=== PATIENT | female | born 1990 | race Two or more races ===

== ENCOUNTER → 2024-11-10 | Outpatient (CLI) | payer OTHER, SELFPAY ==
[2024-11-10 18:10] LABS: Basophils % (Auto) 0 % (0-2.5); Eosinophils # (Auto) 0.2 Thou/mm3 (0.0-0.5); Eosinophils % (Auto) 3 % (0-10); Hematocrit 39.6 % (36.0-46.0); Hemoglobin 13.3 g/dL (12.0-16.0); Immature Granulocytes % (Auto) 0 % (0-0); Immature Granulocytes Auto 0.02 Thou/mm3 (0.00-0.00); Lymphocytes # (Auto) 2.3 Thou/mm3 (1.0-4.8); Lymphocytes % (Auto) 29 % (10-50); Mean Corpuscular HGB Conc 33.6 g/dl (31.0-37.0); Mean Corpuscular Hemoglobin 28.9 pg (25.0-35.0); Mean Corpuscular Volume 86 fL (80-100); Monocytes # (Auto) 0.5 Thou/mm3 (0.0-0.8); Monocytes % (Auto) 6 % (0-12); Neutrophils # (Auto) 4.9 Thou/mm3 (1.8-7.7); Neutrophils % (Auto) 62 % (37-80); Nucleated Red Blood Cell % 0 /100 WBC (0); Platelet Count 346 Thou/mm3 (140-440); RDW Standard Deviation 39.5 fL (36.4-46.3); Red Blood Count 4.61 Miln/mm3 (4.00-5.20); White Blood Count 7.9 Thou/mm3 (3.6-11.0)
[2024-11-10 18:18] LABS: Glucose Estimated Average 105 mg/dL (80-131); Hemoglobin A1C 5.3 % Hgb (4.8-6.0)
[2024-11-10 18:25] LABS: Folate 13.51 ng/mL (>5.38); Vitamin B12 383 pg/mL (211-911); Vitamin D 25 Hydroxy Total 28.6 ng/mL (7.3-40.2)
[2024-11-10 18:27] LABS: Alanine Aminotransferase 36 U/L (10-49); Albumin, Serum 4.3 gm/dL (3.5-5.0); Albumin/Globulin Ratio 1.6 (1.2-2.2); Alkaline Phosphatase 81 U/L (46-116); Anion Gap 10 (7-16); Aspartate Amino Transferase 21 U/L (0-34); BUN/Creatinine Ratio 14 Ratio (12-20); Bilirubin,Total 0.3 mg/dL (0.3-1.2); Blood Urea Nitrogen 10 mg/dL (9-23); Calcium 9.5 mg/dL (8.3-10.6); Calcium (Corrected) 9.5 mg/dL (8.5-10.1); Carbon Dioxide 24.9 mMol/L (20.0-31.0); Cardiac Risk Estimate 5.7 RATIO (3.7-5.6); Chloride 102 mMol/L (98-107); Cholesterol 258 mg/dL (132-200); Creatinine (Component) 0.7 mg/dL (0.6-1.3); Free T4 (Free Thyroxine) 1.25 ng/dL (0.89-1.76); Globulin 2.7 gm/dL (2.3-3.5); Glucose 87 mg/dL (74-106); HDL Cholesterol 45 mg/dL (40-60); LDL Cholesterol,Calculated 184 mg/dL (0-130); Osmolality,Calculated 271 (275-295); Potassium 3.9 mMol/L (3.4-5.1); Sodium 137 mMol/L (136-145); Thyroid Stimulating Hormone 3.06 uIU/mL (0.55-4.78); Triglycerides 143 mg/dL (30-150); eGFR > 60 See Note
[2024-11-10 19:40] LABS: Ferritin 30 ng/mL (7.3-270.7); Iron 47 mcg/dL (50-170); Percent Iron Saturation 14 % (20-55); Total Iron Binding Capacity 320 mcg/dL (250-425); Unsaturated Iron Binding 273 (225-295)
[2024-11-17 06:54] LABS: Insulin* 24.9 uIU/mL (< OR = 18.4)
== END | disposition home or self-care (01) ==
LOC: CDIM 16:36 → COPL 16:42
PROVIDERS: PCP Nurse Practitioner; Referring Provider Nurse Practitioner; Visit Provider Nurse Practitioner
DX: R53.83 Other fatigue (principal); E78.5 Hyperlipidemia, unspecified; R73.09 Other abnormal glucose; E66.813 Obesity, class 3
CPT/HCPCS: 36415; 80053; 80061; 82306; 82607; 82728; 82746; 83036; 83525; 83540; 83550; 84439; 84443; 85025

== ENCOUNTER → 2025-02-07 | Outpatient (CLI) | payer OTHER, SELFPAY ==
--- NOTE | 2025-02-07 08:30 | XR_ITS ---
Examination: Abdomen sonogram, complete Date and time of exam: February 07, 2025 0832 hours INDICATIONS: Diagnosis of morbid obesity. Technique: Multiple real-time grayscale transabdominal sonographic images of the abdomen have been obtained. Findings: Normal gallbladder Normal common bile duct 0.5 cm Pancreatic head 3.0 cm Aorta not enlarged. Liver 14.4 cm fatty liver Normal hepatopedal portal venous flow Patent IVC Right kidney 11.2 cm cortex 2.3 cm Left kidney 10.7 cm cortex 1.8 cm Spleen 9.7 cm IMPRESSION: Normal gallbladder Fatty liver
== END | disposition home or self-care (01) ==
LOC: CDIM 08:10
PROVIDERS: Referring Provider Surgery; Visit Provider Surgery
DX: K76.0 Fatty (change of) liver, not elsewhere classified (principal)
CPT/HCPCS: 76700

== ENCOUNTER 2025-03-04 07:15 | Day surgery (SDC) | payer OTHER, SELFPAY ==
--- NOTE | 2025-03-03 12:37 | EKG_ITS ---
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
[2025-03-03 14:04] LABS: Basophils % (Auto) 0 % (0-2.5); Eosinophils # (Auto) 0.1 Thou/mm3 (0.0-0.5); Eosinophils % (Auto) 1 % (0-10); Hematocrit 41.2 % (36.0-46.0); Hemoglobin 13.7 g/dL (12.0-16.0); Immature Granulocytes % (Auto) 0 % (0-0); Immature Granulocytes Auto 0.01 Thou/mm3 (0.00-0.00); Lymphocytes # (Auto) 1.6 Thou/mm3 (1.0-4.8); Lymphocytes % (Auto) 26 % (10-50); Mean Corpuscular HGB Conc 33.3 g/dl (31.0-37.0); Mean Corpuscular Hemoglobin 29.1 pg (25.0-35.0); Mean Corpuscular Volume 88 fL (80-100); Monocytes # (Auto) 0.5 Thou/mm3 (0.0-0.8); Monocytes % (Auto) 8 % (0-12); Neutrophils # (Auto) 4.2 Thou/mm3 (1.8-7.7); Neutrophils % (Auto) 65 % (37-80); Nucleated Red Blood Cell % 0 /100 WBC (0); Platelet Count 339 Thou/mm3 (140-440); RDW Standard Deviation 41.2 fL (36.4-46.3); White Blood Count 6.4 Thou/mm3 (3.6-11.0)
[2025-03-03 14:17] LABS: Partial Thromboplastin Time 28.2 Seconds (22.0-36.0); Prothrombin Time 10.6 Seconds (9.0-12.2)
[2025-03-03 14:27] LABS: Alanine Aminotransferase 25 U/L (10-49); Albumin, Serum 4.5 gm/dL (3.5-5.0); Albumin/Globulin Ratio 1.7 (1.2-2.2); Alkaline Phosphatase 71 U/L (46-116); Anion Gap 12 (7-16); BUN/Creatinine Ratio 15 Ratio (12-20); Bilirubin,Total 0.3 mg/dL (0.3-1.2); Blood Urea Nitrogen 12 mg/dL (9-23); Calcium 9.4 mg/dL (8.3-10.6); Calcium (Corrected) 9.4 mg/dL (8.5-10.1); Carbon Dioxide 25.3 mMol/L (20.0-31.0); Chloride 106 mMol/L (98-107); Creatinine (Component) 0.8 mg/dL (0.6-1.3); Globulin 2.7 gm/dL (2.3-3.5); Glucose 98 mg/dL (74-106); Osmolality,Calculated 284 (275-295); Potassium 4.1 mMol/L (3.4-5.1); Sodium 143 mMol/L (136-145); Total Protein 7.2 gm/dL (5.7-8.2); eGFR > 60 See Note
[2025-03-04] MEDS: RINGERS LACTATED 1000 ML 1,000 ML 20 ML IV (08:20)
[2025-03-04 08:21] VITALS: BP 140/92; PULSE 65; RESP 15; TEMP 36.2; O2SAT 96
[2025-03-04 08:22] VITALS: BMI 43.1
[2025-03-04 09:09] VITALS: BP 122/86; PULSE 79; RESP 20; TEMP 36.7; O2SAT 96
[2025-03-04 09:19] VITALS: BP 124/73; PULSE 74; RESP 17; O2SAT 97
[2025-03-04 09:29] VITALS: BP 141/101; PULSE 70; RESP 15; O2SAT 99
[2025-03-04 09:55] VITALS: BP 156/98; PULSE 63; RESP 18; O2SAT 99
== END 2025-03-04 09:55 | disposition home or self-care (01) ==
PROVIDERS: PCP Nurse Practitioner; Referring Provider Specialist; Visit Provider Specialist
PROC: (CPT 43239; principal; 2025-03-04 08:30)
DX: Z01.818 Encounter for other preprocedural examination (principal); Z01.810 Encounter for preprocedural cardiovascular examination; K20.90 Esophagitis, unspecified without bleeding; K29.70 Gastritis, unspecified, without bleeding; K29.50 Unspecified chronic gastritis without bleeding; K63.89 Other specified diseases of intestine
CPT/HCPCS: 43239; 36415; 80053; 85025; 85610; 85730; 93005; J7120

== ENCOUNTER 2025-03-05 07:27 | Emergency (ER) | payer OTHER, SELFPAY ==
--- NOTE | 2025-03-05 07:34 | EKG_ITS ---
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
[2025-03-05 08:01] VITALS: BP 135/91; PULSE 74; RESP 18; TEMP 36.7; O2SAT 96
--- NOTE | 2025-03-05 08:09 | XR_ITS ---
Examination: PA lateral chest 2 views Technique: Upright PA lateral chest 2 views Date and time: March 05, 2025 0838 hrs. Indications: Chest pain today. Findings: No significant cardiac enlargement. Lungs are clear. Osseous structures are intact Impression: No active disease.
--- NOTE | 2025-03-05 08:10 | PD.EDCHEST ---
ED Chest Pain RME/HPI General Chief Complaint: Chest Pain Stated Complaint: Chest pressure since 614, endoscopy yesterday Time Seen by Provider: 03/05/25 07:54 Arrival date/time: 03/05/25 07:27 Limitations: no limitations RME / HPI RME / HPI narrative: 34-year-old female presents for evaluation of chest wall pain x 1 day. Patient had upper endoscopy (pre-op for bariatric surgery) performed yesterday with no reported complications following procedure. Patient reports that when she woke up this morning she felt a dull ache in her anterior chest. Denies shortness of breath, cough, palpitations, arm pain, jaw pain. Denies known family history of sudden cardiac . Denies recent travel and antibiotic use. Denies history of prior similar symptoms. Related Data Home Medications ?Medication ?Instructions ?Recorded ?Confirmed No Known Home Medications 03/04/25 03/04/25 Allergies Allergy/AdvReac Type Severity Reaction Status Date / Time No Known Allergies Allergy Verified 03/05/25 07:32 Review of Systems Constitutional Constitutional: Denies body ache(s), Denies chills, Denies excessive sweating, Denies fever(s), Denies headache(s) and Denies lethargy Eyes Eyes: Denies blind spots and Denies blurry vision ENT Ears, Nose, Mouth, and Throat: Denies dysphagia, Denies headache(s), Denies lip swelling, Denies neck pain and Denies odynophagia Cardiovascular Cardiovascular: Denies chest pain, Denies diaphoresis, Denies dyspnea and Denies palpitations Respiratory Respiratory: Denies cough, Denies dyspnea, Denies hemoptysis and Denies wheezing Gastrointestinal Gastrointestinal: Denies abdominal pain, Denies dysphagia, Denies nausea, Denies odynophagia and Denies vomiting Musculoskeletal Musculoskeletal: Denies back pain and Denies neck pain Integumentary/Breasts Skin/Breast: Denies lesions and Denies rash Neurologic Neurologic: Denies abnormal movements and Denies headache(s) Endocrine Endocrine: Denies excessive sweating and Denies palpitations Allergic/Immunologic Allergic/Immunologic: Denies lip swelling and Denies wheezing Past Medical History Past Medical History NEUROLOGIC: Negative Neurological Disorders or Seizures CARDIAC: Positive Cardiac Disorders and Hypercholesterolemia (diet controlled); Negative Congestive Heart Failure RESPIRATORY: Negative Chronic Obstructive Pulmonary Disease (COPD) GASTROINTESTINAL: Negative Gastrointestinal Disorders GENITOURINARY: Negative Genitourinary Disorders or Renal Disease MUSCULOSKELETAL: Negative Musculoskeletal Disorders ENDOCRINE: Negative Diabetes Mellitus Type 1 or Diabetes Mellitus Type 2 HEMATOLOGIC: Negative Blood Disorders PSYCHO/SOCIAL: Positive Anxiety OTHER HISTORY: Negative Blood Transfusions or Anesthesia Reactions Social History SMOKING STATUS: Never smoker ED Exam General Limitations: Present no limitations General appearance: Present alert and in no apparent distress Head Head exam: Present atraumatic and normocephalic Eye Eye exam: Present normal appearance and EOMI ENT ENT exam: Present normal oropharynx and mucous membranes moist Neck Neck exam: Present normal inspection and full ROM; Absent tenderness Chest Chest inspection: Present normal inspection and symmetric chest wall rise; Absent tenderness Respiratory Respiratory exam: Present normal lung sounds bilaterally; Absent respiratory distress or wheezes Cardiovascular Cardiovascular exam: Present regular rate and +S1 Abdominal Exam Abdominal exam: Present soft; Absent distention or tenderness Extremities Exam Extremities exam: Present normal inspection and full ROM Back Exam Back exam: Present normal inspection and full ROM Neurological Exam Neurological exam: Present alert and normal gait Psychiatric Psychiatric exam: Present normal affect Skin Skin exam: Present warm and dry Course Quality Measures none Orders Category Date Time Status EKG (ED ONLY) *Do not use* NOW Care 03/05/25 07:34 Completed EKG (ED Only) Stat Exams 03/05/25 07:34 Draft XR chest 2V Stat Exams 03/05/25 08:09 Taken B-Type Natriuretic Peptide Stat Lab 03/05/25 09:26 Completed CBC Stat Lab 03/05/25 09:26 Completed Comprehensive Metabolic Panel Stat Lab 03/05/25 09:26 Completed Drug Screen,Urine Stat Lab 03/05/25 08:31 Completed HCG Qualitative,Urine Stat Lab 03/05/25 08:31 Completed LDH (Lactate Dehydrogenase) Stat Lab 03/05/25 09:26 Completed Magnesium Stat Lab 03/05/25 09:26 Completed Partial Thromboplastin Time Stat Lab 03/05/25 09:26 Completed Prothrombin Time with INR Stat Lab 03/05/25 09:26 Completed Troponin I Stat Lab 03/05/25 09:26 Completed Urinalysis Stat Lab 03/05/25 08:31 Completed Vital Signs Vital signs: Vital Signs Temperature 98.1 F 03/05/25 08:01 Pulse Rate 74 03/05/25 08:01 Respiratory Rate 18 03/05/25 08:01 Blood Pressure 135/91 H 03/05/25 08:01 Pulse Oximetry (%) 96 03/05/25 08:01 Oxygen Delivery Method Room Air 03/05/25 08:01 Pulse ox 96% on room air, within normal limits. Chest Pain MDM Narrative MDM Narrative:: 34-year-old female presents for evaluation of chest pressure following upper endoscopy yesterday. No reported complications. Vital signs reassuring. Cardiac workup today reassuring giving negative troponin and chest x-ray without gross abnormalities. Patient reports that her symptoms did not recur while in the department. Ultimately she was discharged home with plan to follow-up with primary care within the week and continue to follow with outpatient gastroenterology for follow-up after endoscopy. Return precautions were provided. Patient stable at time of discharge. Patient data External records reviewed:: [facility] previous records Clinical information provided by:: patient Social determinants that could affect healthcare access:: none Patient has the following chronic illnesses:: None reported. How is presenting disease/condition affected by chronic disease/condition?: no chronic disease Evaluation data The following diagnostics were reviewed and interpreted by me:: lab results, radiology exam(s) and EKG tracing(s) Lab and/or radiology exams considered but not ordered:: Chest x-ray without mediastinal widening, no consolidations, no pneumothorax. Troponin within normal limits. No leukocytosis. No gross electrolyte abnormalities or evidence of endorgan damage. No anemia. Negative hCG. UA without signs of infection. Interpretation Summary: See above. Medications / Prescriptions Medications or Prescriptions considered but not ordered:: Considered not ordered. Medication administrations:: Considered not ordered. Consultations Consultation(s) initiated? (list below): No Diagnosis Chest Pain Differential Diagnosis: pneumothorax, stable angina, atypical chest pain, st elevation myocardial infarction, costochondritis, chest pain and biliary colic Most likely diagnosis given after review of the tests above:: Atypical chest pain. Admission Indicated Admission indicated?: not indicated Admission Request Was there a request for admission?: No Disposition Plan Disposition Plan: Discharge Discharge Attestation Discharge Attestation: The patient and all family members were given an opportunity to ask questions and understood the discharge instructions. Discharge instructions specifically effects, indications for sooner follow up or return to the emergency department, and the expected course of current diagnosis. Patient condition: Stable Discharge Plan Plan Patient Disposition: HOME (Self Care) Discharge Disposition comment: stable Prescriptions/Referrals Prescriptions/Med Rec: No Action No Known Home Medications Referrals: Deonna Rosales FNP [Primary Care Provider] - In 1 week Problem List Clinical Impression: Atypical chest pain Patient/Caregiver Discharge Instructions Education Materials: Managing Post-Op Pain at Home, ED Chest Pain, Uncertain Cause Additional Instructions: Follow-up with primary care within the next week for reevaluation. Continue to follow-up with GI as planned. Take ibuprofen as needed every 6 hours for pain. Eat soft foods over the next several days. Return to the ED if your symptoms worsen or change. Print Language: Malawian Stand Alone Forms: Saritha Award Info., Patient Portal Info Letter RENNY/LEÓN Supervising Physician RENNY/LEÓN Supervising Physician: Dr. Polk
[2025-03-05 08:53] LABS: Collection Type, Urine Clean Catch
[2025-03-05 09:00] LABS: Bacteria,Urine 1+; Bilirubin,Urine Negative (Negative); Blood,Urine Negative (Negative); Clarity,Urine Clear (Clear/Hazy); Color,Urine Colorless (Lt Yel-Yel); Glucose, Urine Negative (Negative); HCG Qualitative,Urine Negative; Ketones,Urine Negative (Negative); Leukocyte Esterase,Urine Negative (Negative); Nitrite,Urine Negative (Negative); PH,Urine 6.5 (5.0-7.0); Protein,Urine Negative (Neg - Trace); RBC,Urine 1 /hpf (0-3); Specific Gravity,Urine 1.007 (1.001-1.035); Squamous Epithelial Cell,Urine 1 /hpf (0-5); Urobilinogen,Urine Negative mg/dL (0.0-1.0); WBC,Urine 1 /hpf (0-5)
[2025-03-05 09:08] LABS: Amphetamine/Methamp Scrn,U Negative (Negative); Barbiturate Screen,Urine Negative (Negative); Benzodiazepines Screen,Urine Negative (Negative); Benzoylecgonine Screen, Ur Negative (Negative); Fentanyl Screen,Urine Negative (Negative); Opiate Screen,Urine Negative (Negative); THC Screen,Urine Negative (Negative)
[2025-03-05 09:50] LABS: Basophils % (Auto) 0 % (0-2.5); Eosinophils # (Auto) 0.1 Thou/mm3 (0.0-0.5); Eosinophils % (Auto) 1 % (0-10); Hematocrit 39.9 % (36.0-46.0); Hemoglobin 13.8 g/dL (12.0-16.0); Immature Granulocytes % (Auto) 0 % (0-0); Immature Granulocytes Auto 0.01 Thou/mm3 (0.00-0.00); Lymphocytes # (Auto) 1.5 Thou/mm3 (1.0-4.8); Lymphocytes % (Auto) 25 % (10-50); Mean Corpuscular HGB Conc 34.6 g/dl (31.0-37.0); Mean Corpuscular Hemoglobin 29.2 pg (25.0-35.0); Mean Corpuscular Volume 85 fL (80-100); Monocytes # (Auto) 0.4 Thou/mm3 (0.0-0.8); Monocytes % (Auto) 7 % (0-12); Neutrophils # (Auto) 4.1 Thou/mm3 (1.8-7.7); Neutrophils % (Auto) 67 % (37-80); Nucleated Red Blood Cell % 0 /100 WBC (0); Platelet Count 309 Thou/mm3 (140-440); RDW Standard Deviation 39.8 fL (36.4-46.3); Red Blood Count 4.72 Miln/mm3 (4.00-5.20); White Blood Count 6.2 Thou/mm3 (3.6-11.0)
[2025-03-05 10:02] LABS: B-Type Natriuretic Peptide < 20 pg/mL (0-100)
[2025-03-05 10:05] LABS: Alanine Aminotransferase 30 U/L (10-49); Albumin, Serum 4.4 gm/dL (3.5-5.0); Albumin/Globulin Ratio 1.6 (1.2-2.2); Alkaline Phosphatase 69 U/L (46-116); Anion Gap 9 (7-16); Aspartate Amino Transferase 19 U/L (0-34); BUN/Creatinine Ratio 10 Ratio (12-20); Bilirubin,Total 0.5 mg/dL (0.3-1.2); Blood Urea Nitrogen 8 mg/dL (9-23); Calcium 9.2 mg/dL (8.3-10.6); Calcium (Corrected) 9.2 mg/dL (8.5-10.1); Carbon Dioxide 23.7 mMol/L (20.0-31.0); Chloride 107 mMol/L (98-107); Creatinine (Component) 0.8 mg/dL (0.6-1.3); Globulin 2.8 gm/dL (2.3-3.5); Glucose 96 mg/dL (74-106); LDH (Lactate Dehydrogenase) 178 U/L (120-246); Magnesium 2.1 mg/dL (1.6-2.6); Osmolality,Calculated 277 (275-295); Potassium 4.2 mMol/L (3.4-5.1); Sodium 140 mMol/L (136-145); Total Protein 7.2 gm/dL (5.7-8.2); Troponin I < 0.002 ng/mL (0.0-0.045); eGFR > 60 See Note
[2025-03-05 10:35] LABS: Partial Thromboplastin Time 27.9 Seconds (22.0-36.0); Prothrombin Time 10.6 Seconds (9.0-12.2)
== END 2025-03-05 10:52 | disposition home or self-care (01) ==
PROVIDERS: Physician Assistant; Emergency Provider Emergency Medicine; PCP Nurse Practitioner
DX: R07.89 Other chest pain (principal)
CPT/HCPCS: 36415; 71046; 80053; 80307; 81001; 81025; 83615; 83735; 83880; 84484; 85025; 85610; 85730; 93005; 99283